=== PATIENT | male | born 1990 | race Caucasian/White ===

== ENCOUNTER 2022-07-12 10:58 | Emergency (ER) | payer SELFPAY ==
[2022-07-12 10:59] VITALS: BP 140/83; PULSE 70; RESP 17; TEMP 36.3; O2SAT 96; BMI 21.4
--- NOTE | 2022-07-12 12:25 | EDS_ITS ---
HPI History of Present Illness Chief Complaint: Dental Informant: patient Onset/Context/Timing Onset: Days (3) Context: Gradual Onset Timing: Continuous Quality: Stabbing Location: Right upper molar Worsened by: Nothing Relieved by: NSAIDs Associated Symptoms Assocated Symptom - Dental: face swelling, cold sensitivity and hot sensitivity; Negative for fever or jaw swelling Narrative Narrative: Patient presents with right upper dental pain that has been getting worse over the past 3 days. Patient states that it is gradually getting worse. Patient states it is starting to spread up towards his right eye. Patient states he has over the right upper molar area. Patient states nothing makes it worse. Patient states he has been taking ibuprofen which has been helping somewhat with the pain. Patient admits to hot and cold sensitivity. Patient admits to some facial swelling over the right cheek area. Patient denies any fevers or chills. PFSH PFS Medical History Seizures no medical history Home Medications penicillin V potassium 500 mg tablet 500 mg PO 4X/DAY #40 tabs 07/12/22 [Rx Last Taken Unknown] Allergy/AdvReac Type Severity Reaction Status Date / Time codeine Allergy Angioedema Verified 07/12/22 10:58 Surgical History History of hernia repair Social History Smoking Status: Current every day smoker tobacco type: cigarettes ROS ROS ED Constitutional Constitutional ED: Denies chills or fever(s) Eyes Eyes: Denies blurry vision or change in vision ENT ENT ED: Denies rhinorrhea or sore throat Cardiovascular Cardiovascular: Denies chest pain or palpitations Respiratory/Chest Respiratory/Chest: Denies cough or dyspnea Gastrointestinal Gastrointestinal: Denies nausea or vomiting Genitourinary Genitourinary ED: Denies dysuria or hematuria Musculoskeletal Musculoskeletal: Denies back pain or neck pain Integumentary Denies abscess or rash Neurologic Neurologic: Denies headache(s) or weakness Allergic/Immunologic Allergic/Immunologic ED: Denies mouth swelling or urticaria EXAM Physical Exam Const Vital Signs: 07/12/22 10:59 Temperature 97.4 F L Temperature Source Temporal Pulse Rate 70 Respiratory Rate 17 Blood Pressure 140/83 H Blood Pressure Mean 102 Pulse Ox 96 Oxygen Delivery Method Room Air Positive well nourished and well developed General Appearance ED: well developed and NAD HEENT HEENT Narrative: There is a large dental carry noted over the right upper first molar. There is gingival edema around this tooth. There is no discharge or drainage. There is no fluctuance. Oral mucosa is pink and moist. Oropharynx is clear. Airway is patent. Mouth ED: Yes oral and palatal mucosa normal, Yes lips normal and Yes tongue normal Mouth: oral and palatal mucosa normal, lips normal and tongue normal Teeth and Gingiva: caries Throat: posterior oropharynx normal Neck no lymphadenopathy, supple and no JVD General: normal visual inspection; Negative for anterior neck swelling, tenderness or submandibular swelling Resp normal respiratory effort and clear to auscultation bilaterally Cardio regular rate and regular rhythm Neuro oriented x3, CN's II-XII intact bilaterally, moves all extremities, no focal motor deficits and no sensory deficits noted Sensorium / Orientation: alert Gait (Neuro): normal gait Motor Exam: strength 5/5 throughout Psych mental status grossly normal MDM MDM MDM Narrative Medical decision making narrative: Differential diagnosis includes dental infection and dental abscess. Patient was given a dose of Pen-Vee K here. Patient was given a prescription for Pen- Vee K. Patient was instructed to take Tylenol or ibuprofen as needed for pain. Smoking cessation was discussed. Patient was instructed to follow-up with his dentist when he gets back home. Patient understands and is agreeable with the plan. All questions were answered. Discharge Plan Triage Chief Complaint: Dental ED Provider: Marky Hadley Dx/Rx/DC Orders Clinical Impression: Infected dental caries, Tobacco use Instructions: ED Dental Pain, ED Dental Cavity Prescriptions: New penicillin V potassium 500 mg tablet 500 mg PO 4X/DAY Qty: 40 0RF Primary Care Provider: Care Physician,No Primary Referrals: Care Physician,No Primary [Primary Care Provider] - Dentist,Your [STAFF PHYSICIAN] - 3-5 Days Disposition Disposition: Home, Self Care
[2022-07-12] MEDS: Penicillin Vk 250 MG Tablet 500 MG PO (12:37)
[2022-07-12 12:39] VITALS: PULSE 74; RESP 16; O2SAT 99
== END 2022-07-12 12:40 | disposition home or self-care (01) ==
PROVIDERS: Emergency Provider Emergency Medicine; Visit Provider Emergency Medicine
DX: K02.9 Dental caries, unspecified (principal); F17.210 Nicotine dependence, cigarettes, uncomplicated
CPT/HCPCS: 99283